=== PATIENT | male | born 1960 | race Caucasian/White ===

== ENCOUNTER 2016-08-22 18:51 | Emergency (ER) | payer BC ==
[~2016-08-22] VITALS: Ht 172.7 cm; Wt 127.0 kg
[~2016-08-22 18:51] MED LIST: CODE BLUE PARTICIPANT 1 EA MISC MC ONE; EPINEPHrine PFS 0.1 MG/ML SYR IVP ONE; SODIUM BICARBONATE 8.4% PFS 50 MEQ/50 ML SYR IVP ONE
--- NOTE | 2016-08-22 18:51 | NUR ---
1849--Patient was BIBA on a full arrest. [facility] on scene.
--- NOTE | 2016-08-22 18:52 | NUR ---
56 YO MALE BIBA FROM HOME IN FULL ARREST; PER [facility], PT DOWN FOR 30 MINUTES PRIOR TO ARRIVAL; CPR IN PROGRESS; PT INTUBATED BY ER MD DR. JONES WITH GOOD CAPNOGRAPHY. PT NOTED W/ CLAMMY SKIN, COOL TO TOUCH, PULSELESS ON ARRIVAL; ABDOMEN LARGE, ROUND, DISTENDED; NO SPONTANEOUS RESPIRATIONS;SEE CODE SHEET FFOR DETAILS.
--- NOTE | 2016-08-22 18:59 | NUR ---
technology education teacher at bedside to perform a stat chest XRAY .
[2016-08-22 19:27] VITALS: BP 0/0
[2016-08-22 19:28] VITALS: BP 0/0
--- NOTE | 2016-08-22 19:30 | NUR ---
REPORT RECEIVED FROM RAVEN CASE
--- NOTE | 2016-08-22 19:40 | NUR ---
Pt report given to RAVEN LEWIS. Transfer of care at this time.
--- NOTE | 2016-08-22 19:58 | NUR ---
PT BIBA FULL ARREST. DR STRICKLAND INTUBATED PT WITH 7.5 ETT AT [address] [facility]. [employer] JONATHAN ATTENDED WELL. ANNOUNCED PT EXP AT 191
--- NOTE | 2016-08-22 20:00 | NUR ---
Family in conference room. Waiting to hear back from the [employer]. Appropriate questions being asked at this time. and adult children are together waiting. Dr Sequeira did explain to them that the pt had and answered questions at that time.
--- NOTE | 2016-08-22 22:00 | NUR ---
FAMILY AT BEDSIDE SAYING THEIR LAST GOODBYES TO PATIENT.
--- NOTE | 2016-08-23 00:55 | NUR ---
MORTUARY HAS ARRIVED AND HAS EXPLAINED EVERYTHING TO MRS. HICKEY. THE FAMILY HAS LEFT THE BEDSIDE AND THE PT HAS BEEN MOVED TO THE MORTUARY.
== END 2016-08-22 19:18 | disposition expired ==
LOC: MED 18:51
DX: I46.9 Cardiac arrest, cause unspecified (principal)
CPT/HCPCS: 36556; 71010; 92950; 99291; J0171